=== PATIENT | male | born 1985 | race Caucasian/White ===

== ENCOUNTER 2021-02-25 08:59 | Emergency (ER) | payer OTHER, SELFPAY ==
[2021-02-25 09:24] VITALS: BP 119/75; PULSE 80; RESP 16; TEMP 36.8; O2SAT 100; BMI 35.7
--- NOTE | 2021-02-25 09:36 | XR_ITS ---
WS: [id number] Left hip, AP and frog leg views, 02/25/2021 Clinical Data: pain Comparison: AP pelvis, 07/06/2010. Findings: No fractures or dislocations are seen. The hip joint is intact. The soft tissues are not remarkable. The adjacent pelvis is normal. XR/XR hip LT 2-3V wo/w pel* [id number] Impression: Negative left hip. Tonnis classification: grade 0: normal radiographs
--- NOTE | 2021-02-25 09:37 | ED_ITS ---
HPI - Extremity Problem General: Chief complaint: Extremity Problem,Nontraumatic Stated complaint: LEFT HIP PAIN Time Seen by Provider: 02/25/21 09:27 History of Present Illness: HPI Narrative: Patient complains about ongoing left hip pain worsened after he caught his left foot on a poison tavo root the other day. He had been taking Tylenol for it. But he said pain stiffness worse in the last night when he went to bed. [facility] be [facility] here in [facility] ER before and get a chiropractic referral. MD Complaint: joint pain Onset (ago): day(s) Pain Consistency: constant Location: left Severity scale (1-10): 5 Quality: aching Radiation: none Exacerbating factors: range of motion Associated symptoms: Reports no associated symptoms; Deny chest pain, fever(s) or rash Review of Systems Const: Denies: fever(s), chills or body aches Eyes: Denies: change in vision or blurry vision ENMT: Denies: throat pain or nasal congestion Card: Denies: chest pain or dyspnea on exertion Resp: Denies: dyspnea, productive cough or non-productive cough GI: Denies: abdominal pain, nausea or vomiting : Denies: difficulty urinating Musc: Reports: joint pain (Left hip); Denies: extremity pain Skin/Breast: Denies: rash Neuro: Denies: headache(s) Psych: Denies: anxiety or depression Migue/Lymph: Denies: easy bruising PFS ED PFSH: Social History (Updated 02/25/21 @ 09:29 by Ruslan Moncada RN) Alcohol intake: former Substance/Drug Use: never Physical Exam Const: COMMON NORMALS: no acute distress, average body habitus and patient oriented x3 HENMT: COMMON NORMALS: normocephalic HEAD & SCALP: normal to inspection and normocephalic FACE & SINUS: normal facial exam Eye: COMMON NORMALS: conjunctivae normal GENERAL EYE: appearance normal, mary jane th eyes and all related structures CONJUNCTIVA: Yes conjunctivae normal Neck/C-Spine: COMMON NORMALS: no JVD Chest: COMMONS NORMALS: normal inspection of the chest Resp: COMMON NORMALS: normal respiratory effort Cardio: COMMON NORMALS: no JVD GI: COMMON NORMALS: Normal to inspection, nondistended, normoactive bowel sounds present Extremity: NARRATIVE EXTREMITY EXAM: Patient stands side of the bed pain to put weight on the left leg LEFT LOWER EXTREMITY: Yes hip joint (Tenderness with range of motion) Neuro: COMMON NORMALS: patient oriented x3 Course Vital Signs: Vital signs: Vital Signs Temperature 98.3 F 02/25/21 09:24 Pulse Rate 80 02/25/21 09:24 Respiratory Rate 16 02/25/21 09:24 Blood Pressure 119/75 02/25/21 09:24 Pulse Oximetry 100 02/25/21 09:24 Coding Level of Care Code ED Patch Driller for Leslieg Fwd Exam Comprehensive
== END 2021-02-25 10:10 | disposition home or self-care (01) ==
PROVIDERS: Emergency Provider Nurse Practitioner Family; PCP Emergency Medicine Emergency Medical Services
DX: M25.552 Pain in left hip (principal)
CPT/HCPCS: 73502; 99282

== ENCOUNTER 2024-08-15 07:42 | Emergency (ER) | payer OTHER, SELFPAY ==
[2024-08-15 07:57] VITALS: BP 162/88; PULSE 79; RESP 18; TEMP 37; O2SAT 94; BMI 41.0
--- NOTE | 2024-08-15 08:00 | ED_ITS ---
HPI - Dental/Oral 2 General: Chief complaint: Dental/Oral Stated complaint: face is swollen, fever, sweating, pain Time Seen by Provider: 08/15/24 07:48 Source: patient Mode of arrival: ambulatory Limitations: no limitations History of Present Illness: Patient is a 39-year-old male presents to ED today with complaint of dental pain and swelling to the right side of his face that he began noticing yesterday. He states he has a longstanding history of dental issues and poor dental care. He is not having any difficulty eating, breathing, swallowing, controlling secretions. No fevers. MD Complaint: tooth pain Teeth map: 1. Onset (ago): day(s) Duration: constant Severity: moderate Relieving factors: nothing Exacerbating factors: nothing Context: poor dental care Associated symptoms: Reports other (facial swelling); Denies fever(s) or odynophagia Treatment prior to arrival: oral analgesic (ibuprofen 800mg) Related Data Previous Rx's Medication Instructions Recorded ibuprofen 800 mg tablet 800 mg PO Q8H PRN pain #20 tabs 08/15/24 penicillin V potassium 500 mg 500 mg PO Q8H 7 days #21 tabs 08/15/24 tablet Allergies Allergy/AdvReac Type Severity Reaction Status Date / Time No Known Allergies Allergy Verified 08/15/24 08:08 Review of Systems 2 Const: Denies: fever(s), chills, body aches, fatigue or malaise ENMT: Reports: dental pain; Denies: throat pain, uvular edema, enlarged tonsils, odynophagia, swelling of lips/tongue or oral sores Card: Denies: chest pain Resp: Denies: dyspnea GI: Denies: nausea or vomiting Musc: Denies: neck pain, back pain, extremity pain, extremity swelling, joint pain or joint swelling Skin/Breast: Denies: rash Neuro: Denies: headache(s) PFSH ED 2 PFSH: Social History Alcohol intake: former Substance/Drug Use: never Physical Exam 2 Const: COMMON NORMALS: no acute distress, no limitations, alert and well nourished GENERAL APPEARANCE: cooperative HENMT: COMMON NORMALS: Normal external nose present FACE & SINUS: sinuses nontender FACE & SINUS IMAGES: 1. swelling; no fluctuant abscess NOSE: Normal external nose present MOUTH: Normal oral and palatal mucosa present and lip normal TEETH & GINGIVA: Yes caries, Yes poor dentition and Yes other (significant widespread dental disease and gingivitis) THROAT: p osterior oropharynx normal and tonsils normal; no uvular edema Neck/C-Spine: COMMON NORMALS: no lymphadenopathy GENERAL: No anterior neck swelling and No submandibular swelling Resp: COMMON NORMALS: normal respiratory effort and clear to auscultation bilaterally AUSCULTATION: clear to auscultation bilaterally Cardio: COMMON NORMALS: regular rate and regular rhythm RATE: regular rate RHYTHM: regular rhythm Neuro: SENSORIUM/ORIENTATION: Yes alert Course 2 Vital Signs: Vital signs: Vital Signs Temperature 98.6 F 08/15/24 08:04 Pulse Rate 79 08/15/24 08:04 Respiratory Rate 18 08/15/24 08:04 Blood Pressure 162/88 08/15/24 08:04 Pulse Oximetry 94 08/15/24 08:04 [facility] - Dental/Oral Medical Decision Making Patient will be placed on antibiotics. Recommend prompt dental follow-up. He was given a list of dental resources prior to discharge. Return to ED precautions given. Medical Records I reviewed the patient's medical records. No radiology studies performed this visit Discharge Plan Discharge Patient Disposition: Home Clinical Impression: Dental caries, Toothache, Dental infection Condition: Stable Prescriptions: New ibuprofen 800 mg tablet 800 mg PO Q8H PRN (Reason: pain) Qty: 20 0RF penicillin V potassium 500 mg tablet 500 mg PO Q8H 7 Days Qty: 21 0RF Discontinued celecoxib [Celebrex] 100 mg capsule 100 mg PO BID Qty: 20 0RF Discharge Orders: Discharge ED (Routine); Ordered 08/15/24 Ordered By: Brianna Horvath Referrals: Bhupinder Ibanez DO [Primary Care Provider] - Patient Instructions: Dental Caries (Cavities), Dental Abscess (ED), Toothache (ED) Activity Restrictions/Additional Instructions: Fill your antibiotics and start immediately you need to seek medical reevaluation for worsening pain, swelling, fevers, redness or warmth to your face, trouble swallowing, eating, or controlling secretions, or breathing. You have been given a list of dental resources. I encourage prompt dental follow- up. Coding Level of Care Code ED Metal Grinder for Jay Gimenez
[2024-08-15 08:04] VITALS: BP 162/88; PULSE 79; RESP 18; TEMP 37; O2SAT 94
[2024-08-15 08:37] VITALS: BP 153/94; PULSE 82; O2SAT 91
== END 2024-08-15 08:38 | disposition home or self-care (01) ==
PROVIDERS: Emergency Provider Physician Assistant; PCP Emergency Medicine Emergency Medical Services
DX: K02.9 Dental caries, unspecified (principal); K08.89 Other specified disorders of teeth and supporting structures; K04.7 Periapical abscess without sinus
CPT/HCPCS: 99283